=== PATIENT | female | born 1980 | race Two or more races ===

== ENCOUNTER → 2024-05-28 | Outpatient (CLI) | payer OTHER, SELFPAY ==
--- NOTE | 2024-05-28 13:00 | XR_ITS ---
Examination: Breast ultrasound, unilateral, right complete Date and time of exam: May 28, 2024 1321 hours INDICATIONS: Mammogram December 26, 2023 focal asymmetry upper outer right breast Technique: Real-time johnson scale ultrasonographic imaging performed right breast including all 4 quadrants as well as nipple retroareolar and axillary region. Findings: No cystic or solid mass IMPRESSION: BI-RADS Category 1: Negative study
--- NOTE | 2024-05-28 13:30 | XR_ITS ---
Examination: Diagnostic digital mammography, unilateral, right Computer aided detection 3-D breast Tomosynthesis, unilateral Date and time of exam: May 28, 2024 at 1337 hrs. Compared to mammograms dating to 11/28/2022 Indications: Mammogram 10/21/2023 3 nodular focal asymmetries outer right breast, 10 mm focal asymmetry nipple level right breast Technique: Nonmagnified MLO, CC views of the right breast have been obtained, reconstructed from 3-D Tomosynthesis images. R2 computer aided detection program utilized for evaluation of suspicious masses and/or abnormal calcifications. 3-D Tomosynthesis images obtained. Findings: The breast is heterogeneously dense, which may obscure small masses Stable focal asymmetries compared to mammograms dating to July 29, 2022 Benign calcifications Impression: BI-RADS category 2: Benign findings Recommend yearly follow-up mammography Given the patient's breast asymmetries, recommend 6 month right breast sonogram follow-up
== END | disposition home or self-care (01) ==
PROVIDERS: PCP Obstetrics & Gynecology; Referring Provider Obstetrics & Gynecology; Visit Provider Obstetrics & Gynecology
DX: R92.321 Mammographic fibroglandular density, right breast (principal)
CPT/HCPCS: 76641; 77061; 77065; G0279

== ENCOUNTER → 2024-12-24 | Outpatient (CLI) | payer OTHER, SELFPAY ==
--- NOTE | 2024-12-24 15:45 | XR_ITS ---
Examination: Breast ultrasound complete, bilateral Date and time of exam: December 24, 2024, 1544 hours INDICATIONS: Focal asymmetries, 3 nodular focal asymmetries outer right breast 10 mm focal asymmetry nipple level right breast on mammogram 10/21/2023 Technique: Real-time grayscale ultrasonographic imaging bilateral breasts, including all 4 quadrants as well as nipple retroareolar and axillary regions. Findings: Sonographic images right breast No cystic or solid masses Sonographic images left breast 10:00 cyst 5 x 5 mm, no solid nodules IMPRESSION: BI-RADS Category 2: Benign findings
== END | disposition home or self-care (01) ==
LOC: CDIM 15:34
PROVIDERS: Referring Provider Nurse Practitioner; Visit Provider Nurse Practitioner
DX: R92.333 Mammographic heterogeneous density, bilateral breasts (principal)
CPT/HCPCS: 76641